=== PATIENT | male | born 1995 | race Caucasian/White ===

== ENCOUNTER 2021-01-19 18:22 | Emergency (ER) | payer SELFPAY ==
[~2021-01-19] VITALS: Ht 172.7 cm; Wt 63.5 kg
[2021-01-19 18:45] VITALS: BP_SYST 135
--- NOTE | 2021-01-19 18:45 | NUR ---
Patient to ER hallway for evaluation. Side rails up. assumed care .
--- NOTE | 2021-01-19 19:01 | NUR ---
summ: pt. bib father and grandmother, while in admitting hallway pt. made attempts to leave and refused triage, father stated 1 month ago pt. overdosed on cocaine and has been acting odd since yesterday at lunch time, pt. was shuffling, pupils dialated, refused eye contact, had Dr. Alcazar come out to triage pt. was unable to answer simple questions such as date so led pt. to ER hallway, triage info [place] with help from father, while in [facility] pt. began to panic relocated to bed 7 and placed on monitor.
[2021-01-19] MEDS ORDERED: LORazepam 2 MG/ML VIAL ONE (19:14)
[2021-01-19 19:18] LABS: BASOPHILS # (AUTO) 0.1 K/uL (0.0-0.2); BASOPHILS % (AUTO) 1.1 % (0.0-2.0); EOSINOPHILS % (AUTO) 0.2 % (0.0-4.0); HEMATOCRIT 41.6 % (36-54); HEMOGLOBIN 14.1 g/dL (14.0-18.0); LYMPHOCYTES # (AUTO) 2.1 K/uL (1.0-5.5); LYMPHOCYTES % (AUTO) 25.2 % (20.5-51.5); MEAN CORPUSCULAR HEMOGLOBIN 31 pg (27-31); MEAN CORPUSCULAR HGB CONC 34 % (32-36); MEAN CORPUSCULAR VOLUME 91 fL (79.0-98.0); MONOCYTES # (AUTO) 0.7 K/uL (0.0-1.0); MONOCYTES % (AUTO) 8.8 % (1.7-9.3); NEUTROPHILS # (AUTO) 5.3 K/uL (1.8-7.7); NEUTROPHILS % (AUTO) 64.7 % (40.0-70.0); PLATELET COUNT (AUTO) 189 K/uL (130-430); RED BLOOD CELL COUNT(AUTO) 4.58 MIL/uL (4.2-6.2); RED CELL DISTRIBUTION WIDTH 13.6 % (9.0-15.0); WHITE BLOOD COUNT (AUTO) 8.2 K/uL (4.8-10.8)
--- NOTE | 2021-01-19 19:23 | NUR ---
Ativan given per Dr. Alcazar, pt. combatative and kicking
[2021-01-19] MEDS ORDERED: KETAMINE 30 MG/3 ML SYRINGE ONE (19:27)
[2021-01-19 19:30] LABS: ANION GAP 13 (5-15); CALCIUM 9.2 mg/dL (8.4-11.0); CHLORIDE 101 mmol/L (98-107); CREATININE 0.96 mg/dL (0.55-1.30); GLUCOSE 86 mg/dL (70-99); POTASSIUM 3.9 mmol/L (3.5-5.1); SODIUM SERUM 137 mmol/L (136-145); UREA NITROGEN, BLOOD 26 mg/dL (8-21)
--- NOTE | 2021-01-19 19:30 | NUR ---
Assumed care of patient at change of shift. Patient noted to confused and combative (prior to administration of ativan), Per MD Alcazar patient to be given 90mcg of ketamine ivp (admin by MD Alcazar). In/Out cath performed and ua sent to lab. Pcxr done while patient lying in gurney. Introduced self to patient and family, continue to monitor.
--- NOTE | 2021-01-19 19:30 | NUR ---
# 14 FR In and Out catheter with use of sterile technique. Immediate return of 200 ml clear yellow urine noted. Urine sample collected and sent to lab. Pt tolerated procedure.
[2021-01-19 19:32] LABS: GFR AFRICAN AMERICAN 125 mL/min (>90)
[2021-01-19] MEDS: LORazepam 2 MG/ML VIAL IVP ONE (19:37)
[2021-01-19 19:45] LABS: ALANINE AMINOTRANSFERASE 80 U/L (12-78); ALBUMIN 5.1 g/dL (3.4-4.8); ASPARTATE AMINOTRANSFERASE 30 U/L (10-37); TOTAL BILIRUBIN 0.6 mg/dL (0.0-1.0)
[2021-01-19 19:46] LABS: ACETAMINOPHEN < 1 ug/mL (1-30); ALCOHOL, BLOOD < 3 mg/dL (<10)
[2021-01-19 20:11] LABS: CKMB RELATIVE INDEX 0.6 (0.0-2.9); CREATINE KINASE MB 2.6 ng/mL (0-3.6)
[2021-01-19] MEDS: KETAMINE IV ONE (20:39)
[2021-01-19] MEDS: NS IV ONE (20:39)
[2021-01-19 20:49] LABS: BARBITURATE, URINE NEGATIVE (NEG <=200); BENZODIAZEPINE, URINE NEGATIVE (NEG <=150); CANNABINOID, URINE NEGATIVE (NEG <=50); COCAINE, URINE NEGATIVE (NEG <=150); METHAMPHETAMINES SCREEN,URINE NEGATIVE (NEG <=500); OPIATE, URINE NEGATIVE (NEG <=100); PHENCYCLIDINE SCREEN,URINE NEGATIVE (NEG <=25); UR TRICYCLIC ANTIDEPRESSANTS NEGATIVE (NEG <=300); URINE AMPHETAMINE NEGATIVE (NEG <=500); URINE METHADONE NEGATIVE (NEG <=200); URINE OXYCODONE SCREEN NEGATIVE (NEG <=100); URINE PROPOXYPHENE SCREEN NEGATIVE (NEG <=300)
--- NOTE | 2021-01-19 21:22 | NUR ---
Patient resting quietly. No acute distress noted. Vital signs within normal range. no bizarre or unusual behavior but patient is still confused but no longer agitated.
--- NOTE | 2021-01-19 22:44 | NUR ---
Patient given written and verbal discharge instructions and verbalizes understanding. ER MD discussed with patient the results and treatment provided. Patient in stable condition. ID arm band removed. IV catheter removed intact and dressing applied, no active bleeding. Rx of given. Patient educated on pain management and to follow up with PMD. Pain Scale 0. Opportunity for questions provided and answered. Medication side effect fact sheet provided.
[2021-01-19 22:45] VITALS: BP_SYST 126
== END 2021-01-19 22:44 | disposition home or self-care (01) ==
LOC: SED 18:22
DX: K56.609 Unspecified intestinal obstruction, unspecified as to partial versus complete obstruction (principal); F14.90 Cocaine use, unspecified, uncomplicated; Z79.899 Other long term (current) drug therapy
CPT/HCPCS: 36415; 71045; 80053; 80307; 82550; 82553; 84484; 85025; 93005; 96374; 99285; G0480; J2060; G0481; G0482